=== PATIENT | male | born 1995 ===

== ENCOUNTER 2022-07-27 06:00 | Day surgery (SDC) | payer OTHER ==
[~2022-07-27] VITALS: Ht 170.2 cm; Wt 79.4 kg
[2022-07-27] MEDS ORDERED: CEPHALEXIN500 MG PO (10:07)
== END 2022-07-27 13:05 | disposition home or self-care (01) ==
LOC: CIR.AMB 06:00
PROVIDERS: ATTEND Otolaryngology Otology & Neurotology
DX: Q18.0 Sinus, fistula and cyst of branchial cleft (principal); Z20.822 Contact with and (suspected) exposure to COVID-19; Z86.16 Personal history of COVID-19